=== PATIENT | female | born 1950 | race Caucasian/White ===

== ENCOUNTER 2016-09-21 16:12 | Emergency (ER) | payer MEDICARE ==
[~2016-09-21] VITALS: Ht 154.9 cm; Wt 102.0 kg
[~2016-09-21 16:12] MED LIST: ALPR0.5T8 PO; ALPR1TAB7 PO; ASPI500T15 PO; CARV6.25 PO; LOVA20TA PO; Lithium Carbonate PO; MULT-1018 PO; Venlafaxine Hcl PO
[2016-09-21 16:24] VITALS: BP 159/86; PULSE 88; RESP 16; O2SAT 98
--- NOTE | 2016-09-21 18:47 | ED.REPORT ---
HPI-Psychiatric Illness Date of Service Sep 21, 2016 ED Provider: Judy Sharif MD Patient is a 66 year old female with a history of PTSD, depression and hypertension who presents to the ED stating that her depression has gotten worse. She denies suicidal ideations, hallucinations, shortness of breath or urinary problems. The patient states that her anti-depressants were recently changed last week. She reports that she has had a lot of added stress over the past few years and that her sister recently , which has been hard for her to deal with. Patient was seen by her primary care physician who recommended she come to the ED to try to get admitted to the psych floor. She has no suicidality, homicidality or psychotic symptoms. Nursing Notes Stated Complaint: DEPRESSION/REF'D TO DR ESPINOSA Chief Complaint: Psychiatric Complaint Nursing Notes Reviewed: Yes Allergies: Coded Allergies: No Known Allergies (Verified Allergy, Unknown, 09/21/16) Scheduled ([[place] Carbonate]) 300 MG TABLET.ER 300 MG PO BID ([Venlafaxine Hcl]) 37.5 MG TABLET 225 MG PO AM Alprazolam (Alprazolam) 0.5 Mg Tablet 0.5 MG PO AM Carvedilol (Coreg) 6.25 Mg Tablet 6.25 MG PO BID Lovastatin (Lovastatin) 20 Mg Tablet 30 MG PO HS Multivitamin (Multi Vitamin Daily) 1 Each Tablet 1 EACH PO DAILY Scheduled PRN Alprazolam (Alprazolam) 1 Mg Tablet 1.5 MG PO HS PRN PRN For Anxiety Aspirin (Aspirin) 500 Mg Tablet 162.5 MG PO Q6 PRN PRN For Pain General Time Seen by MD: 16:39 Chief Complaint Depressed Hx Obtained From: Patient Arrived By: Walk-in Progression Since Onset: Gradually worsening Severity: Current: No pain currently Recent Healthcare: Recent doctor visit Similar Sx Previous: Yes Risk-Psychiatric Illness Suicide Risk Stratification Suicide Risk Factors - Adult: : Alcohol use: Prior psych admissionNo: Substance abuse RF Statements: Risk factors reviewed Past Medical History Past Medical History Depression PTSD Reports: Hypertension Past Surgical History None Smoking History Light Tobacco Smoker Social History Alcohol Use: 1-3 per week Drug Use: THC Ambulatory Status Independent Review of Systems Constitutional: Denies: Chills, Fever Respiratory: Denies: Non-productive cough, Shortness of breath Skin: Denies Itching, Denies Rash Neurologic: Denies: Bladder dysfunction Psychiatric: Reports: Depression, Stress, Denies: Hallucinations, auditory, Hallucinations, visual, Suicidal ideation Complete sys rev & neg: except as marked. Female: Denies: Dysuria, Incontinence Physical Exam Initial Vital Signs Vital Signs (First) Date Time Temp Pulse Resp B/P Pulse Ox O2 Delivery O2 Flow Rate FiO2 09/21/16 16:24 36.4 88 16 159/86 98 Room Air Initial VS: Reviewed General/Constitutional: Awake, Alert Behavior: Positive: Tearful Neurologic: Oriented X3, Speech NL Psychiatric: Not suicidal, Not homicidal, No hallucinations Abnormal Mood/Affect: Positive: Depressed Head / Eyes: Atraumatic, Normocephalic, PERRL, EOMI Respiratory / Chest: Atraumatic, No respiratory distress Skin: Warm, Dry Upper Extremity / MS: Atraumatic, Full range of motion Lower Extremity / Pelvis / MS: Atraumatic, Full range of motion Interpretation & Diagnostics Lab Results Interpretation Result Diagram: 09/21/16190809/21/16 190 Test 09/21/16 18:32 09/21/16 19:09 09/21/16 19:10 Hold Urine Received (Received) White Blood Count 8.0th/mm3 (3.8-10.1) Red Blood Count 4.53mil/mm3 (3.90-5.20) Hemoglobin 14.2g/dL (12.0-15.6) Hematocrit 41.8% (35.0-46.0) Mean Corpuscular Volume 92.3fL (81-100) Mean Corpuscular Hemoglobin 31.3pg (27.0-35.0) Mean Corpuscular Hemoglobin Concent 34.0% (32.0-37.0) Red Cell Distribution Width 12.7% (12.3-15.4) Platelet Count 218bil/L (150-400) Neutrophils (%) (Auto) 63.4% (40-74) Lymphocytes (%) (Auto) 26.4% (14-46) Monocytes (%) (Auto) 7.8% (4-12) Eosinophils (%) (Auto) 1.5% (0-5) Basophils (%) (Auto) 0.5% (0-3) Sodium Level 139mEq/L (134-144) Potassium Level 4.2mEq/L (3.5-5.2) Chloride Level 100mEq/L (97-108) Carbon Dioxide Level 25mmol/L (18-29) Blood Urea Nitrogen 15mg/dL (8-27) Creatinine 0.93mg/dL (0.57-1.00) Estimat Glomerular Filtration Rate 87mL/min (>59) Glucose Level 90mg/dL (60-99) Calcium Level 10.2mg/dL (8.5-10.1) Total Bilirubin 0.6mg/dL (0.0-1.2) Aspartate Amino Transf (AST/SGOT) 25U/L (0-50) Alanine Aminotransferase (ALT/SGPT) 21U/L (0-32) Alkaline Phosphatase 67U/L (25-165) Total Protein 7.7g/dL (6.4-8.4) Albumin 4.9g/dL (3.4-5.0) Thyroid Stimulating Hormone (TSH) 1.820uIU/mL (0.450-4.500) Hold [place] Top Tube Received (Received) Re-Eval/Medical Decision Med Decision/Clinical Course 66-year-old female history impression reports no improvement and some worsening of her chronic depression symptoms including weight loss and lack of motivation. Presented in the emergency department instruction of her outpatient provider for admission, after discussion with myself and the social media editor, patient feels that it would be best for her to obtain outpatient psychiatry rather than be admitted as an inpatient, which I find reasonable given that the patient does not have any suicidal or homicidal ideation has no psychotic symptoms and has in fact been dealing with this for a long time. prolonged time, outpatient therapy best for her. Labs ordered including TSH had any new concerning symptoms. Re-Evaluation/Progress #1: Time of Eval: 22:08 Re-Evaluation/Progress Note: After talking with social media editor, patient has a plan for outpatient follow up. Re-Evaluation/Progress #2: Time of Eval: 22:18 Re-Evaluation/Progress Note: Discussed labs and plan for discharge. Patient understands and agrees to plan. All questions were addressed. Counseled Regarding: Diagnosis, Lab results, Need for follow-up, When/why to return to ED Discharge & Departure Impression: Primary Impression: Depression Depression Type: major depressive disorder Major depression recurrence: recurrent Active/Remission status: currently active Major depression episode severity: mild Qualified Code: F33.0 - Major depressive disorder, recurrent, mild )( Condition at Discharge: No danger to self, No danger to others Discharge Condition All VS Reviewed: Yes Condition: Stable Patient Instructions: Depression (ED) Additional Instructions: Call your therapist tomorrow to schedule a follow up appointment. Continue to take your medications as prescribed. Return to the emergency department if you develop any new thoughts of harming yourself or concerning symptoms. Referrals: Olga Lagos MD (PCP) Gregoriaibmary Attestation Portions of this note were transcribed by Linette Beltre. I, Dr. Sharif personally performed the history, physical exam and medical decision-making; I reviewed and confirmed the accuracy of the information in the transcribed note. Signed by: Fortino Butler, 09/21/16 copies to: Olga Lagos MD, Sarah C MD Sep 21, 2016 18:47 Louisa Beltre Sep 21, 2016 18:54
[2016-09-21 19:13] LABS: BASOPHILS % (AUTO) 0.5 % (0-3); EOSINOPHILS % (AUTO) 1.5 % (0-5); MONOCYTES % (AUTO) 7.8 % (4-12); Mean Corpuscular Hemoglobin 31.3 pg (27.0-35.0); Mean Corpuscular Volume 92.3 fL (81-100); NEUTROPHILS % (AUTO) 63.4 % (40-74); Platelet Count 218 bil/L (150-400)
[2016-09-21 22:42] VITALS: BP 142/83; PULSE 74; RESP 20; O2SAT 99
[2016-09-21 22:43] VITALS: BP 142/4; PULSE 74; RESP 16; O2SAT 100
--- NOTE | 2016-09-21 23:13 | NUR ---
Mental Health Evaluation Theresa Flynn 09/21/2016 Reason for Hospital visit: Depression Precipitating Problem:Pt self presented to the ED for depression. CORE CHECKER met with Pt at bedside. Pt reported that she has been experiencing depression for most of her life. Pt indicated that she recently found out that her [id number] had and explained that she has been struggling with grief for about a week as a result. Pt explained that she met with her PCP today and they recommended that she come to the ED for [place] [facility]. Pt reported no desire to kill herself or anyone else. Pt indicated that she has been experiencing anhedonia, low energy, low motivation and poor ADLs for the last two years with no substantial increase in severity of symptoms. Pt explained that she and her PCP have been trying to find medication that will manage her depression with limited success. Pt explained that she is very tired of being depressed and just wants to feel normal. Mental Status: Pt is a 66 year old female. Pt is moderately groomed and neatly attired. Pt makes appropriate eye contact. Pt is tearful at times throughout the interview. Pt's affect is labile and her mood vacillates between depressed and tearful to upbeat and euthymic. Pt's speech is somewhat pressured. Pt is A/O x4. Pt's thought process is clear and linear but tangential. Pt denies current SI, HI and A/V H. Psychiatric Hx: Pt reported one previous psychiatric hospitalization at [facility] several years ago. Pt is not currently enrolled in outpatient mental health treatment. Pt reported that her PCP has been managing her psychiatric medications. Pt was unsure of her psychiatric diagnosis. Pt reported that Bipolar I Disorder runs in her family on her father's side. CD Hx: Pt reported that she recently purchased CBD oil. Pt's BAL was 0 and her UTOX was positive for THC and benzos. Pt has a prescription for alprazolam and admitted to the [facility]. Legal Hx: Pt reported no current legal concerns. Diagnosis: F32.9 - Unspecified Depressive Disorder Disposition: Pt denies current SI, HI and A/V H. Pt is experiencing some functional impairment but this appears to be something that she experiences at baseline. Pt does not meet the necessary acuity for inpatient psychiatric hospitalization at this time. Pt expressed that she felt safe to discharge home. Pt was agreeable to return to the ED if she felt unable to remain safe. CORE CHECKER encouraged Pt to begin working with a counselor and to make an appointment with a psychiatrist. Pt was agreeable to this and indicated that she would make those phone calls in the morning. CORE CHECKER conferred with ED MD and the decision was made to discharge Pt home tonight. Pt to return to the ED if she feels unable to remain safe. OMAYRA Theodore, AAC
== END 2016-09-21 22:44 ==
LOC: SED 16:12
DX: F32.9 Major depressive disorder, single episode, unspecified (principal); I10 Essential (primary) hypertension; F43.10 Post-traumatic stress disorder, unspecified; F17.200 Nicotine dependence, unspecified, uncomplicated